=== PATIENT | female | born 1935 | race Caucasian/White ===

== ENCOUNTER 2016-07-26 12:43 | Emergency (ER) | payer OTHER ==
[~2016-07-26 12:43] MED LIST: ATORVASTATIN CA10 MG PO; LEVOTHYROXINE112 MCG PO; LISINOPRIL5 MG PO; METFORMIN HCL500 MG PO; TYLENOL EXTRA500 MG PO; VITAMIN D-31000 UNIT PO
--- NOTE | 2016-07-26 14:32 | DIAGNOSTIC IMAGING REPORT ---
PROCEDURE: XR CHEST 2 VIEW INDICATION: WHEEZING. X-SMOKER. TECHNIQUE: PA and lateral view. COMPARISON: None. FINDINGS: Mild hyperinflation with peribronchial cuffing. Lungs are clear. Cardiovascular structures are normal. Mild dextroscoliosis with severe degenerative changes of the spine. Left shoulder arthroplasty. Cholecystectomy. IMPRESSION: 1. COPD 2. Bronchitis
--- NOTE | 2016-07-26 16:52 | ED ORDER SUMMARY ---
..... Patient: PEGGY MENDEZ OrderSheet [facility] VisitID: [id number] [address] [place] [address] 81y, F Registration Date/Time: 07/26/2016 ORDER SHEET Weight: 83.9 kg (estimated) Allergies: Codeine, IV Contrast, Sulfa Antibiotics GENERAL ORDERS: Chest 2V Urgent (13:07/26/2016 Virgie Calderon) (Ack 13:12 YURIurca ER Tech1) (13:27 RMarsden R.N.) Pharmacist Intern (Continuous) (Respiratory Distress) (13:07/26/2016 Virgie Calderon) (13:10 JSimbeck R.N.) CMP Urgent (13:07/26/2016 Virgie Calderon) (Ack 13:12 YURIurca ER Tech1) (13:20 RMarsden R.N.) CBC w Diff Urgent (13:07/26/2016 Virgie Calderon) (Ack 13:12 YURIurca ER Tech1) (13:20 RMarsden R.N.) Pulse oximeter (13:07/26/2016 Virgie Calderon) (13:10 JSimbeck R.N.) MEDICATION ORDERS: DuoNeb Neb Tx 1 unit dose (NOW) (13:07/26/2016 Virgie Calderon) (13:21 RMarsden R.N.) Albuterol Neb Tx 2 unit doses (now) (15:24 07/26/2016 Virgie Calderon) (Ack 15:30 RMarsden R.N.) (15:51 RMarsden R.N.) Azithromycin PO 500 mg (NOW) (16:50 07/26/2016 Virgie Calderon) (Ack 17:05 JSimbeck R.N.) (17:08 Ronna R.N.) IV FLUIDS: Solu-MEDROL IV 125 mg (NOW) (13:07/26/2016 Virgie Calderon) (Ack 13:21 RMarsden R.N.) (13:27 RMarsden R.N.) IV Saline Lock (13:07/26/2016 Virgie Calderon) (13:21 Katiuska Peter) ORDER SHEET NOTES: [Electronically signed by Magui Peña R.N. (:07/26/2016)] [Electronically signed by Hansel Gregorio Dr. (16:59 07/30/2016)] [Electronically locked/signed by Magui Peña R.N. (:07/26/2016)]
--- NOTE | 2016-07-26 16:52 | ED NURSING NOTES ---
Clinical Report - Nurses [facility] [address] [place] [address] 07/26/2016 12:45 Patient: PEGGY MENDEZ TRIAGE Triage time 12:52. Acuity: LEVEL 3. Chief Complaint: SHORTNESS OF BREATH, DIFFICULTY BREATHING and WHEEZING. 13:06 07/26/16. Alert. No acute distress. SEPSIS SCREEN: Sepsis Screen. Negative (no infection suspected/documented). DARCIE COMA SCORE: [place] Coma Scale: 15- eyes open spontaneously (4); best verbal response- oriented x 4 (5); best motor response- obeys commands (6). --13:06 Magui Peña R.N. 12:55 07/26/16. BP: 131/88. HR: 102. RR: 19. O2 saturation: 95%. Temp: 98.5 F. Pain level now: 0/10. --13:06 Magui Peña R.N. Weight: 83.9 kg estimated. Height/Length: 61 inches Estimated. BMI: 35. --13:05 Magui Peña R.N. Medications Albuterol Sulfate Inhalation. --13:00 Magui Peña R.N. Atorvastatin Calcium Oral. MetFORMIN HCl Oral. --13:01 Magui Peña R.N. Vitamin D Oral. --13:01 Magui Peña R.N. Levothyroxine Sodium Oral. --13:01 Magui Peña R.N. Allergies Codeine. IV Contrast. Sulfa Antibiotics. --13:01 Magui Peña R.N. History Arrived by private vehicle. Historian: patient and family. Accompanied by family. Primary physician (Dr Hunter). Onset. (four days ago). ( Patient states "I've felt like this before, but usually I can sit and breathe through it and it will go away. This time it has been hard to breathe for 4 days." Patient states that she also has been coughing up yellow phlegm.). She has had wheezing. Treatment SLEEP TECHNOLOGIST: (albuterol). PAST MEDICAL HX: Immunizations: up-to-date. SOCIAL HX: Smoker- current status unknown. No alcohol use or drug use. FALL RISK ASSESSMENT: Fall risk assessment completed. No fall risk identified. NUTRITIONAL RISK ASSESSMENT: The nutritional risk assessment revealed no deficiencies. FUNCTIONAL ASSESSMENT: Functional assessment: no impairments noted. LEARNING NEEDS ASSESSMENT: The learning needs assessment revealed no barriers. SKIN INTEGRITY ASSESSMENT: Skin integrity risk assessment completed. No skin integrity risk identified. --13:06 Magui Peña R.N. PROBLEMS: Asthma. Wound Check. Diabetes Mellitus. Tetanus Status. Immunizations. Cellulitis. Contusion. Abrasion(s). Diab. --13:02 Magui Peña R.N. ADDITIONAL SURGERIES: Carpal Tunnel Surgery. Cholecystectomy. Hysterectomy. Oophorectomy. Shoulder Surgery. Umbilical Hernia Repair. --13:02 Magui Peña R.N. Interventions ID band on patient. To treatment room. --13:06 Magui Peña R.N. PHYSICAL ASSESSMENT 13:07 07/26/16. Ambulatory to room. GENERAL / NEURO / PSYCH: Alert. Oriented X 4. Appears in no acute distress. HEENT: Mucous membranes are pink. RESPIRATORY: Moderate respiratory distress. Chest nontender. Bilateral wheezes diffusely. CVS: Capillary refill less than 2 seconds. GI / : Abdomen soft. Bowel sounds within normal limits. SKIN: Skin is warm and dry. Normal skin turgor. --13:07 Magui Peña R.N. NURSING PROGRESS NOTES Patient gowned. Two patient identifiers checked. Call light placed in reach. Side rails up x 1. Bed placed in lowest position. Brakes of bed on. --13:07 Magui Peña R.N. Patient ID band checked for patient name and birthdate: family confirmed. Blood samples drawn from the left antecubital space by nurse per protocol ; labeled in presence of the patient: rainbow set. Line flushed with 5 mL normal saline post blood draw. --13:20 Magui Peña R.N. 13:15 07/26/2016 Site #1 started via IV in the left antecubital space with an 20g angiocath; one attempt. Blood drawn: rainbow set. Labeled in the presence of the patient and sent to the lab. Saline lock flushed with 5 mL saline. --13:21 Magui Peña R.N. 13:21 07/26/2016 Duoneb (Ipratropium-Albuterol) Neb TX 1 unit dose given. Given by the respiratory therapist. Allergies verified and confirmed 5 rights. --13:21 Magui Peña R.N. 13:27 07/26/2016 SOLU-MEDROL (MethylPREDNISolone Sodium Succ) IVP 125 mg given over 2 minute(s) via site #1. Allergies verified and confirmed 5 rights. IV patency established. IV site checked: no pain, redness, or swelling. IV flushed thoroughly pre- and post-medication administration. IVP given by RN. --13:27 Magui Peña R.N. ( Pt states that the benefit from the HHN has worn off.). --13:48 Isiah Jackson R.N. 13:46 07/26/16. BP: 94/64 taken on the right arm, while lying. HR: 94. RR: 18. O2 saturation: 97%. Pain level now: 0/10. --13:48 Isiah Jackson R.N. 14:40 07/26/16. BP: 118/53. HR: 90. RR: 20. O2 saturation: 96%. Pain level now: 0/10. --14:41 Magui Peña R.N. Reassessment after medication administered. She is calm and has had no adverse reaction. ( Patient states "I think that medication you gave me [solu-mederol] really helped"). RESPIRATORY: No respiratory distress. Patient informed about reason for wait and about plan of care. --14:44 Magui Peña R.N. 15:14 07/26/16. BP: 108/45. HR: 85. RR: 21. O2 saturation: 98%. Pain level now: 0/10. --15:15 Magui Peña R.N. The patient is sleeping. --15:15 Magui Peña R.N. ( Patient's O2 sat was 84% on room air while she was sleeping. She was placed on 2L O2 via nasal cannula). --15:24 Magui Peña R.N. 14:00 07/26/2016 Duoneb Neb TX Response: no adverse reaction symptoms have improved. --16:18 Isiah Jackson R.N. 15:41 07/26/2016 Albuterol Neb TX Nebulizer 2 unit dose given. Given by the respiratory therapist. Allergies verified and confirmed 5 rights. --15:51 Magui Peña R.N. 15:53 07/26/16. BP: 96/45. HR: 87. RR: 19. O2 saturation: 98%. Temp: deferred. Pain level now: 0/10. --15:54 Magui Peña R.N. ( O2 sat 95% after nasal cannula placement). --15:54 Magui Peña R.N. 16:40 07/26/2016 Albuterol Neb TX Response: no adverse reaction symptoms have improved (Pt reports some relief now, but still has a heavy feeling in the sternal area.). --16:40 Isiah Jackson R.N. 17:08 07/26/2016 Azithromycin PO Tablets 500 mg given. Allergies verified and confirmed 5 rights. --17:08 Isiah Jackson R.N. DISPOSITION / DISCHARGE 17:14 07/26/16. BP: 96/47. HR: 110. RR: 21. O2 saturation: 93%. Temp: 98.8 F. Pain level now: 0/10. --17:16 Magui Peña R.N. No learning barriers present. Discharge instructions provided and reviewed with the patient. Reviewed warnings. Reviewed medication(s). Treatments reviewed. Activity restrictions reviewed. Patient and family verbalized understanding. Written instructions provided in Croatian. The patient was discharged by the physician. She was discharged home and accompanied by family. She left the Emergency Department ambulatory and via private vehicle. Family member driving. --17:26 Magui Peña R.N. Locked/Released at 07/26/2016 19:26 by Magui Peña R.N.
--- NOTE | 2016-07-26 16:52 | ED CLINICAL REPORT ---
Clinical Report - Physicians/Mid Levels [facility] [address] [place] [address] 07/26/2016 12:45 Patient: PEGGY MENDEZ Time Seen: 1259. Arrived- By private vehicle. Historian- patient. HISTORY OF PRESENT ILLNESS Chief Complaint: DYSPNEA and WHEEZING. This started past 3 - 4 days and is still present (unchanged). It was gradual in onset and has been constant but is not gone now. The dyspnea is described as moderate. The patient has had a cough. (wheezing. hx of smoking. quit in the s but was a smoker for 30 - 40 years.). No chest pain. Asthma triggers: unknown. Takes asthma medications (inhaled albuterol), recently prescribed by PCP. works for a few hours but then comes back. Similar symptoms previously: Recent medical care: The patient was seen recently in a clinic. REVIEW OF SYSTEMS No fever, headache, palpitations or skin rash. All systems otherwise negative, except as recorded above. PAST HISTORY See nurses notes. Medications: Levothyroxine Sodium Oral. Vitamin D Oral. Atorvastatin Calcium Oral. MetFORMIN HCl Oral. Albuterol Sulfate Inhalation. Allergies: Codeine. IV Contrast. Sulfa Antibiotics. SOCIAL HISTORY Former smoker. No alcohol use or drug use. No recent travel. Is a local resident. ADDITIONAL NOTES The nursing notes have been reviewed. PHYSICAL EXAM Vital Signs: 07/26/2016 12:55 BP: 131/88. HR: 102. RR: 19. O2 saturation: 95%. Temp: 98.5 F. Pain level now: 0/10. Blood pressure normal. Oxygen saturation normal. Appearance: Alert. No acute distress. Eyes: Pupils equal, round and reactive to light. Eyes normal inspection. ENT: Ears normal. Nose normal. Pharynx normal. Uvula midline. Neck: Normal inspection. Neck supple. CVS: Normal heart rate and rhythm. Heart sounds normal. Pulses normal. Respiratory: Mild respiratory distress with accessory muscle use. Expiratory moderate bilateral wheezes diffusely. No stridor, rales or rhonchi. Abdomen: Soft and nontender. No organomegaly. Skin: Skin warm and dry. Normal skin color. No rash. Normal skin turgor. Extremities: Extremities exhibit normal ROM. No lower extremity edema. Neuro: Oriented X 3. No motor deficit. No sensory deficit. LABS, X-RAYS, AND EKG Chest X-ray: (PROCEDURE: XR CHEST 2 VIEW INDICATION: WHEEZING. X-SMOKER. TECHNIQUE: PA and lateral view. COMPARISON: None. FINDINGS: Mild hyperinflation with peribronchial cuffing. Lungs are clear. Cardiovascular structures are normal. Mild dextroscoliosis with severe degenerative changes of the spine. Left shoulder arthroplasty. Cholecystectomy. IMPRESSION: 1. COPD 2. Bronchitis). Views: PA and lateral. The X-rays were independently viewed by me and interpreted by the radiologist. The X-rays were discussed with the radiologist (via pacs). Laboratory Tests: CBC w Diff: (TATA: 07/26/2016 13:16) ( [facility]32) Final results Test Result Flag Units (Reference) WHITE BLOOD COUNT 10.3 K/uL (4.5-11.5) RED BLOOD COUNT 4.33 M/uL (4.00-5.20) HEMOGLOBIN 12.5 gm/dL (12.0-16.0) HEMATOCRIT 38.1 % (36.0-46.0) MEAN CELL VOLUME 88 fL (80-100) MEAN CORPUSCULAR HGB 29 pg (26-34) MEAN CORPUSCULAR HGB CONC 33 g/dL (31-37) RED CELL DISTRIBUTION WIDTH 12.8 % (11.6-14.8) PLATELET COUNT 510 H K/uL (150-400) NEUTROPHIL % 64.4 % (50-75) LYMPH % 24.8 L % (25-40) MONO % 4.0 % (3-14) EOSINOPHIL % 6.4 H % (0-4) BASOPHIL % 0.4 % (0-2) CMP: (TATA: 07/26/2016 13:16) ( [facility]26[facility] 14:07) Final results Test Result Flag Units (Reference) GLUCOSE 147 H mg/dL (70-110) BUN 21 H mg/dL (7-18) CREATININE 0.8 mg/dL (0.6-1.3) Estimated GFR >60 mL/min Estimated GFR- >60 mL/min Note: Persistent reduction over 3 months in eGFR<60 mL/min/1.73 m2 defines CKD. Patients with eGFR values>=60 mL/min/1.73 m2 may also have CKD if evidence ofpersistent proteinuria. Additional information may be foundat www.kidney.org. SODIUM 144 mmol/L (136-145) POTASSIUM 3.9 mmol/L (3.5-5.1) CHLORIDE 104 mmol/L (98-107) CARBON DIOXIDE 27 mmol/L (21-32) CALCIUM 9.1 mg/dL (8.5-10.1) TOTAL PROTEIN 7.4 g/dL (6.4-8.2) ALBUMIN 3.9 g/dL (3.3-5.0) BILIRUBIN, TOTAL 0.5 mg/dL (0.0-1.0) ALKALINE PHOSPHATASE 63 U/L (46-116) AST (SGOT) 15 U/L (15-37) ALT (SGPT) 27 U/L (12-78) . PROGRESS AND PROCEDURES Course of Care: The patient is a pleasant 81-year-old female presenting for revised and wheezing. At this time differential diagnosis includes pneumonia versus COPD exacerbation. Patient is agreeable to the treatment plan. We'll obtain laboratory studies for evaluation of any metabolic derangements occurring from the patient's difficulty breathing. Breathing treatment has been ordered. Patient is agreeable to the treatment and plan. If symptoms do not improve his breathing treatments here in the emergency department we'll consider other causes for the patient to have difficulty breathing and wheezing. Patient's chest x-ray is noted for the findings above. Laboratory studies are also noted to be noted to have only slight improvement with her breathing here in the emergency department. Further breathing treatments have been ordered. We'll monitor closely. Patient had required several breathing treatments here in the emergency department however had significantly improved with the treatments here in the emergency department. Patient continues to be nontoxic. Breathing has significantly improved. Breasts are nonlabored and patient only with intermittent wheezing on examination and is otherwise clear. Because of the patient's improved symptomatology and lack of respiratory distress, fill the patient is a stable outpatient candidate. Patient states that she feels comfortable with home care at this time and states that she'll return immediately for any worsening and states that she lives nearby. Because of this, patient appears to be reliable and a good outpatient candidate. Discussed with the patient her workup here in the emergency department clinic diagnosis, home care, follow-up, and return precautions. All questions have been answered. He patient expressed understanding of these instructions and was agreeable to them. Disposition: Discharged. Condition: good. CLINICAL IMPRESSION 07/26/2016 15:53 BP: 96/45. HR: 87. RR: 19. O2 saturation: 98%. Pain level now: 0/10. 07/26/2016 15:14 BP: 108/45. HR: 85. RR: 21. O2 saturation: 98%. Pain level now: 0/10. Blood pressure normal. Oxygen saturation normal. Acute bronchospasm Acute bacterial bronchitis. INSTRUCTIONS Warnings: GENERAL WARNINGS: Return or contact your physician immediately if your condition worsens or changes unexpectedly, if not improving as expected, or if other problems arise. Specifically return if pain, vomiting, bleeding, breathing difficulty or fever. Your Current Medications: CONTINUE TAKING THE FOLLOWING MEDICATIONS: Albuterol Sulfate Inhalation. Atorvastatin Calcium Oral. Levothyroxine Sodium Oral. MetFORMIN HCl Oral. Vitamin D Oral. Prescription Medications: Zithromax Z-Rell: Take according to package instructions. No refills. Substitution is permissible. Prednisone 50 mg: take 1 orally every day. Dispense five (5). No refills. Follow-up: Return to the emergency department as needed. Follow up with your doctor in three days. Reason for referral: recheck today's concerns. Summary of care provided to patient and family via paper. Screening today revealed the patient's blood pressure to be in the normal range. The patient should follow up with a primary care provider for blood pressure management. Understanding of the discharge instructions verbalized by patient. (Electronically signed by Hansel Gregorio Dr. 07/30/2016 16:59)
--- NOTE | 2016-07-26 16:52 | ED ORDER SUMMARY ---
..... Patient: PEGGY MENDEZ OrderSheet [facility] VisitID: [id number] [address] [place] [address] 81y, F Registration Date/Time: 07/26/2016 ORDER SHEET Weight: 83.9 kg (estimated) Allergies: Codeine, IV Contrast, Sulfa Antibiotics GENERAL ORDERS: Chest 2V Urgent (13:07/26/2016 Virgie Calderon) (Ack 13:12 YURIurca ER Tech1) (13:27 RMarsden R.N.) Surgical Pathologist (Continuous) (Respiratory Distress) (13:07/26/2016 Virgie Calderon) (13:10 JSimbeck R.N.) CMP Urgent (13:07/26/2016 Virgie Calderon) (Ack 13:12 YURIurca ER Tech1) (13:20 RMarsden R.N.) CBC w Diff Urgent (13:07/26/2016 Virgie Calderon) (Ack 13:12 YURIurca ER Tech1) (13:20 RMarsden R.N.) Pulse oximeter (13:07/26/2016 Virgie Calderon) (13:10 JSimbeck R.N.) MEDICATION ORDERS: DuoNeb Neb Tx 1 unit dose (NOW) (13:07/26/2016 Virgie Calderon) (13:21 RMarsden R.N.) Albuterol Neb Tx 2 unit doses (now) (15:24 07/26/2016 Virgie Calderon) (Ack 15:30 RMarsden R.N.) (15:51 RMarsden R.N.) Azithromycin PO 500 mg (NOW) (16:50 07/26/2016 Virgie Calderon) (Ack 17:05 JSimbeck R.N.) (17:08 Ronna R.N.) IV FLUIDS: Solu-MEDROL IV 125 mg (NOW) (13:07/26/2016 Virgie Calderon) (Ack 13:21 RMarsden R.N.) (13:27 RMarsden R.N.) IV Saline Lock (13:07/26/2016 Virgie Calderon) (13:21 Katiuska Peter) ORDER SHEET NOTES: [Electronically signed by Magui Peña R.N. (:07/26/2016)] [Electronically signed by Hansel Gregorio Dr. (16:59 07/30/2016)] [Electronically locked/signed by Magui Peña R.N. (:07/26/2016)]
--- NOTE | 2016-07-30 17:00 | ED MAR SUMMARY ---
..... Medication Administration Record [facility] [address] [place] [address] Patient: PEGGY MENDEZ Visit ID: [id number] 81y, F Weight: 83.9 kg Height/Length: 61 in BMI: 35 ALLERGIES: Codeine, IV Contrast, Sulfa Antibiotics Given 13:21 07/26/2016 Magui Peña R.N. Medication Administered: DUONEB [NEB TX] (IPRATROPIUM-ALBUTEROL), Dose: 1 unit dose Neb TX. Medication Ordered: DuoNeb Neb Tx 1 unit dose (NOW). Given 13:27 07/26/2016 Magui Peña R.N. Medication Administered: SOLU-MEDROL [IVP] (METHYLPREDNISOLONE SODIUM SUCC), Dose: 125 mg IVP over 2 minute(s), Site: #1 left AC. Medication Ordered: Solu-MEDROL IV 125 mg (NOW). Given 15:41 07/26/2016 Magui Peña R.N. Medication Administered: ALBUTEROL [NEB TX], Dose: 2 unit dose Nebulizer Neb TX. Medication Ordered: Albuterol Neb Tx 2 unit doses (now). Given 17:08 07/26/2016 Isiah Jackson R.N. Medication Administered: AZITHROMYCIN [PO], Dose: 500 mg Tablets PO. Medication Ordered: Azithromycin PO 500 mg (NOW).
--- NOTE | 2016-07-30 17:00 | ED MAR SUMMARY ---
..... Medication Administration Record [facility] [address] [place] [address] Patient: PEGGY MENDEZ Visit ID: [id number] 81y, F Weight: 83.9 kg Height/Length: 61 in BMI: 35 ALLERGIES: Codeine, IV Contrast, Sulfa Antibiotics Given 13:21 07/26/2016 Magui Peña R.N. Medication Administered: DUONEB [NEB TX] (IPRATROPIUM-ALBUTEROL), Dose: 1 unit dose Neb TX. Medication Ordered: DuoNeb Neb Tx 1 unit dose (NOW). Given 13:27 07/26/2016 Magui Peña R.N. Medication Administered: SOLU-MEDROL [IVP] (METHYLPREDNISOLONE SODIUM SUCC), Dose: 125 mg IVP over 2 minute(s), Site: #1 left AC. Medication Ordered: Solu-MEDROL IV 125 mg (NOW). Given 15:41 07/26/2016 Magui Peña R.N. Medication Administered: ALBUTEROL [NEB TX], Dose: 2 unit dose Nebulizer Neb TX. Medication Ordered: Albuterol Neb Tx 2 unit doses (now). Given 17:08 07/26/2016 Isiah Jackson R.N. Medication Administered: AZITHROMYCIN [PO], Dose: 500 mg Tablets PO. Medication Ordered: Azithromycin PO 500 mg (NOW).
--- NOTE | 2016-07-30 17:00 | ED DISCHARGE INSTRUCTIONS ---
Patient: PEGGY MENDEZ General Instructions [facility] VisitID: [id number] [address] [place] [address] 81y, F Registration Date/Time: 07/26/2016 07/26/2016 15:53 BP: 96/45. HR: 87. RR: 19. O2 saturation: 98%. Pain level now: 0/10. 07/26/2016 15:14 BP: 108/45. HR: 85. RR: 21. O2 saturation: 98%. Pain level now: 0/10. Blood pressure normal. Oxygen saturation normal. Acute bronchospasm Acute bacterial bronchitis. INSTRUCTIONS Warnings: GENERAL WARNINGS: Return or contact your physician immediately if your condition worsens or changes unexpectedly, if not improving as expected, or if other problems arise. Specifically return if pain, vomiting, bleeding, breathing difficulty or fever. Your Current Medications: CONTINUE TAKING THE FOLLOWING MEDICATIONS: Albuterol Sulfate Inhalation. Atorvastatin Calcium Oral. Levothyroxine Sodium Oral. MetFORMIN HCl Oral. Vitamin D Oral. Prescription Medications: Zithromax Z-Rell: Take according to package instructions. No refills. Substitution is permissible. Prednisone 50 mg: take 1 orally every day. Dispense five (5). No refills. Follow-up: Return to the emergency department as needed. Follow up with your doctor in three days. Reason for referral: recheck today's concerns. Summary of care provided to patient and family via paper. Screening today revealed the patient's blood pressure to be in the normal range. The patient should follow up with a primary care provider for blood pressure management. Understanding of the discharge instructions verbalized by patient. ADDITIONAL INFORMATION Bronchospasm (Adult) Bronchospasm occurs when the airways (bronchial tubes) go into spasm and contract. This makes it hard to breathe and causes wheezing (a high-pitched whistling sound). Bronchospasm can also cause frequent coughing without the wheezing sound. Bronchospasm is due to irritation, inflammation or allergic reaction of the airways. People with asthma get bronchospasm. However, not everyone with bronchospasm has asthma. Being exposed to harmful fumes, a recent case of bronchitis, or a flare-up of chronic emphysema (COPD) may cause the airways to spasm. An episode of bronchospasm may last 7-14 days. Medicine may be prescribed to relax the airways and prevent wheezing. Antibiotics will be prescribed only if your doctor thinks there is a bacterial infection. Antibiotics do not help a viral infection. Home Care: Drink lots of water or other fluids (at least 10 glasses a day) during an attack. This will loosen lung secretions and make it easier to breathe. If you have heart or kidney disease, check with your doctor before you drink extra amounts of fluids. Take prescribed medicine exactly at the times advised. If you have a hand-held inhaler or aerosol breathing medicine, do not use it more than once every four hours, unless told to do so. If prescribed an antibiotic or prednisone, take all of the medicine even if you are feeling better after a few days. Do not smoke. Avoid being exposed to the smoke of others. If you were given an inhaler, use it exactly as directed. If you need to use it more often than prescribed, your condition may be getting worse. Contact your doctor or this facility. Follow Up With Your Doctor, Or As Directed. [ NOTE: If you are age 65 or older, or if you have chronic asthma or COPD, we recommend a PNEUMOCOCCAL VACCINATION every five years and a yearly INFLUENZA VACCINATION (FLU-SHOT) every . Ask your doctor about this.] Get Prompt Medical Attention If Any Of The Following Occur: Increased wheezing or shortness of breath Need to use your inhalers more often than usual without relief Fever of 100.4F (38C) or higher, or as directed by your healthcare provider Coughing up lots of dark-colored or bloody sputum (mucus) Chest pain with each breath You do not start to improve within 24 hours Bronchitis (Adult: Abx Tx) BRONCHITIS is an infection of the air passages (bronchial tubes). It often occurs during the common cold. Symptoms include cough with mucus (phlegm) and low-grade fever. Bronchitis usually lasts 7-14 days. Mild cases can be treated with simple home remedies. More severe infection is treated with an antibiotic. Home Care: If symptoms are severe, rest at home for the first 2-3 days. When you resume activity, don't let yourself get too tired. Do not smoke. Avoid being exposed to the smoke of others. You may use acetaminophen (Tylenol) or ibuprofen (Motrin, Advil) to control fever or pain, unless another medicine was prescribed for this. [NOTE: If you have chronic liver or kidney disease or ever had a stomach ulcer or GI bleeding, talk with your doctor before using these medicines.] Your appetite may be poor, so a light diet is fine. Avoid dehydration by drinking 6-8 glasses of fluids per day (water, soft, drinks, juices, tea, soup, etc.). Extra fluids will help loosen secretions in the lungs. Rxbs-ass-mdiyqgu cough medicines that containdextromethorphan(such as Robitussin DM) and decongestants (Actifed or Sudafed) may help relieve cough and congestion. [NOTE: Do not use decongestants if you have high blood pressure.] Finish all antibiotic medicine, even if you are feeling better after only a few days. Follow Up with your doctor or as directed if you dont start to feel better after three days. [NOTE: If you are age 65 or older, or if you have chronic asthma or COPD, we recommend a PNEUMOCOCCAL VACCINATION every five years and a yearly INFLUENZAVACCINATION (FLU-SHOT) every . Ask your doctor about this. If you had an X-ray, a radiologist will review it. You will be notified of any new findings that may affect your care.] Get Prompt Medical Attention if any of the following occur: Fever over 100.4F (38.0C) for more than three days Trouble breathing, wheezing or pain with breathing Coughing up blood or increased amounts of colored sputum Weakness, drowsiness, headache, facial pain, ear pain or a stiff neck Prednisone Oral tablet What is this medicine? PREDNISONE (PRED ni sone) is a corticosteroid. It is commonly used to treat inflammation of the skin, joints, lungs, and other organs. Common conditions treated include asthma, allergies, and arthritis. It is also used for other conditions, such as blood disorders and diseases of the adrenal glands. How should I use this medicine? Take this medicine by mouth with a glass of water. Follow the directions on the prescription label. Take this medicine with food. If you are taking this medicine once a day, take it in the morning. Do not take more medicine than you are told to take. Do not suddenly stop taking your medicine because you may develop a severe reaction. Your doctor will tell you how much medicine to take. If your doctor wants you to stop the medicine, the dose may be slowly lowered over time to avoid any side effects. Talk to your manager mission regarding the use of this medicine in children. Special care may be needed. What side effects may I notice from receiving this medicine? Side effects that you should report to your doctor or health care coordinator as soon as possible: allergic reactions like skin rash, itching or hives, swelling of the face, lips, or tongue changes in emotions or moods changes in vision depressed mood eye pain fever or chills, cough, sore throat, pain or difficulty passing urine increased thirst swelling of ankles, feet Side effects that usually do not require medical attention (report to your doctor or health care coordinator if they continue or are bothersome): confusion, excitement, restlessness headache nausea, vomiting skin problems, acne, thin and shiny skin trouble sleeping weight gain What may interact with this medicine? Do not take this medicine with any of the following medications: metyrapone mifepristone This medicine may also interact with the following medications: aminoglutethimide amphotericin B aspirin and aspirin-like medicines barbiturates certain medicines for diabetes, like glipizide or glyburide cholestyramine cholinesterase inhibitors cyclosporine digoxin diuretics ephedrine female hormones, like estrogens and control pills isoniazid ketoconazole NSAIDS, medicines for pain and inflammation, like ibuprofen or naproxen phenytoin rifampin toxoids vaccines warfarin What if I miss a dose? If you miss a dose, take it as soon as you can. If it is almost time for your next dose, talk to your doctor or health care coordinator. You may need to miss a dose or take an extra dose. Do not take double or extra doses without advice. Where should I keep my medicine? Keep out of the reach of children. Store at room temperature between 15 and 30 degrees C (59 and 86 degrees F). Protect from light. Keep container tightly closed. Throw away any unused medicine after the expiration date. What should I tell my health care provider before I take this medicine? They need to know if you have any of these conditions: Alesia's syndrome diabetes glaucoma heart disease high blood pressure infection (especially a virus infection such as chickenpox, cold sores, or herpes) kidney disease liver disease mental illness myasthenia gravis osteoporosis seizures stomach or intestine problems thyroid disease an unusual or allergic reaction to lactose, prednisone, other medicines, foods, dyes, or preservatives or trying to get breast-feeding What should I watch for while using this medicine? Visit your doctor or health care coordinator for regular checks on your progress. If you are taking this medicine over a prolonged period, carry an identification card with your name and address, the type and dose of your medicine, and your doctor's name and address. This medicine may increase your risk of getting an infection. Tell your doctor or health care coordinator if you are around anyone with measles or chickenpox, or if you develop sores or blisters that do not heal properly. If you are going to have surgery, tell your doctor or health care coordinator that you have taken this medicine within the last twelve months. Ask your doctor or health care coordinator about your diet. You may need to lower the amount of salt you eat. This medicine may affect blood sugar levels. If you have diabetes, check with your doctor or health care coordinator before you change your diet or the dose of your diabetic medicine. You have been given the following additional information: Bronchospasm (Adult) Bronchitis, Antiobiotic Treatment (Adult) Prednisone Oral tablet (Electronically signed by Hansel Gregorio Dr. 07/30/2016 16:59)
--- NOTE | 2016-07-30 17:00 | ED DISCHARGE INSTRUCTIONS ---
Patient: PEGGY MENDEZ General Instructions [facility] VisitID: [id number] [address] [place] [address] 81y, F Registration Date/Time: 07/26/2016 07/26/2016 15:53 BP: 96/45. HR: 87. RR: 19. O2 saturation: 98%. Pain level now: 0/10. 07/26/2016 15:14 BP: 108/45. HR: 85. RR: 21. O2 saturation: 98%. Pain level now: 0/10. Blood pressure normal. Oxygen saturation normal. Acute bronchospasm Acute bacterial bronchitis. INSTRUCTIONS Warnings: GENERAL WARNINGS: Return or contact your physician immediately if your condition worsens or changes unexpectedly, if not improving as expected, or if other problems arise. Specifically return if pain, vomiting, bleeding, breathing difficulty or fever. Your Current Medications: CONTINUE TAKING THE FOLLOWING MEDICATIONS: Albuterol Sulfate Inhalation. Atorvastatin Calcium Oral. Levothyroxine Sodium Oral. MetFORMIN HCl Oral. Vitamin D Oral. Prescription Medications: Zithromax Z-Rell: Take according to package instructions. No refills. Substitution is permissible. Prednisone 50 mg: take 1 orally every day. Dispense five (5). No refills. Follow-up: Return to the emergency department as needed. Follow up with your doctor in three days. Reason for referral: recheck today's concerns. Summary of care provided to patient and family via paper. Screening today revealed the patient's blood pressure to be in the normal range. The patient should follow up with a primary care provider for blood pressure management. Understanding of the discharge instructions verbalized by patient. ADDITIONAL INFORMATION Bronchospasm (Adult) Bronchospasm occurs when the airways (bronchial tubes) go into spasm and contract. This makes it hard to breathe and causes wheezing (a high-pitched whistling sound). Bronchospasm can also cause frequent coughing without the wheezing sound. Bronchospasm is due to irritation, inflammation or allergic reaction of the airways. People with asthma get bronchospasm. However, not everyone with bronchospasm has asthma. Being exposed to harmful fumes, a recent case of bronchitis, or a flare-up of chronic emphysema (COPD) may cause the airways to spasm. An episode of bronchospasm may last 7-14 days. Medicine may be prescribed to relax the airways and prevent wheezing. Antibiotics will be prescribed only if your doctor thinks there is a bacterial infection. Antibiotics do not help a viral infection. Home Care: Drink lots of water or other fluids (at least 10 glasses a day) during an attack. This will loosen lung secretions and make it easier to breathe. If you have heart or kidney disease, check with your doctor before you drink extra amounts of fluids. Take prescribed medicine exactly at the times advised. If you have a hand-held inhaler or aerosol breathing medicine, do not use it more than once every four hours, unless told to do so. If prescribed an antibiotic or prednisone, take all of the medicine even if you are feeling better after a few days. Do not smoke. Avoid being exposed to the smoke of others. If you were given an inhaler, use it exactly as directed. If you need to use it more often than prescribed, your condition may be getting worse. Contact your doctor or this facility. Follow Up With Your Doctor, Or As Directed. [ NOTE: If you are age 65 or older, or if you have chronic asthma or COPD, we recommend a PNEUMOCOCCAL VACCINATION every five years and a yearly INFLUENZA VACCINATION (FLU-SHOT) every . Ask your doctor about this.] Get Prompt Medical Attention If Any Of The Following Occur: Increased wheezing or shortness of breath Need to use your inhalers more often than usual without relief Fever of 100.4F (38C) or higher, or as directed by your healthcare provider Coughing up lots of dark-colored or bloody sputum (mucus) Chest pain with each breath You do not start to improve within 24 hours Bronchitis (Adult: Abx Tx) BRONCHITIS is an infection of the air passages (bronchial tubes). It often occurs during the common cold. Symptoms include cough with mucus (phlegm) and low-grade fever. Bronchitis usually lasts 7-14 days. Mild cases can be treated with simple home remedies. More severe infection is treated with an antibiotic. Home Care: If symptoms are severe, rest at home for the first 2-3 days. When you resume activity, don't let yourself get too tired. Do not smoke. Avoid being exposed to the smoke of others. You may use acetaminophen (Tylenol) or ibuprofen (Motrin, Advil) to control fever or pain, unless another medicine was prescribed for this. [NOTE: If you have chronic liver or kidney disease or ever had a stomach ulcer or GI bleeding, talk with your doctor before using these medicines.] Your appetite may be poor, so a light diet is fine. Avoid dehydration by drinking 6-8 glasses of fluids per day (water, soft, drinks, juices, tea, soup, etc.). Extra fluids will help loosen secretions in the lungs. Jinm-ypn-hxynjtz cough medicines that containdextromethorphan(such as Robitussin DM) and decongestants (Actifed or Sudafed) may help relieve cough and congestion. [NOTE: Do not use decongestants if you have high blood pressure.] Finish all antibiotic medicine, even if you are feeling better after only a few days. Follow Up with your doctor or as directed if you dont start to feel better after three days. [NOTE: If you are age 65 or older, or if you have chronic asthma or COPD, we recommend a PNEUMOCOCCAL VACCINATION every five years and a yearly INFLUENZAVACCINATION (FLU-SHOT) every . Ask your doctor about this. If you had an X-ray, a radiologist will review it. You will be notified of any new findings that may affect your care.] Get Prompt Medical Attention if any of the following occur: Fever over 100.4F (38.0C) for more than three days Trouble breathing, wheezing or pain with breathing Coughing up blood or increased amounts of colored sputum Weakness, drowsiness, headache, facial pain, ear pain or a stiff neck Prednisone Oral tablet What is this medicine? PREDNISONE (PRED ni sone) is a corticosteroid. It is commonly used to treat inflammation of the skin, joints, lungs, and other organs. Common conditions treated include asthma, allergies, and arthritis. It is also used for other conditions, such as blood disorders and diseases of the adrenal glands. How should I use this medicine? Take this medicine by mouth with a glass of water. Follow the directions on the prescription label. Take this medicine with food. If you are taking this medicine once a day, take it in the morning. Do not take more medicine than you are told to take. Do not suddenly stop taking your medicine because you may develop a severe reaction. Your doctor will tell you how much medicine to take. If your doctor wants you to stop the medicine, the dose may be slowly lowered over time to avoid any side effects. Talk to your senior painter regarding the use of this medicine in children. Special care may be needed. What side effects may I notice from receiving this medicine? Side effects that you should report to your doctor or health primary health care nurse as soon as possible: allergic reactions like skin rash, itching or hives, swelling of the face, lips, or tongue changes in emotions or moods changes in vision depressed mood eye pain fever or chills, cough, sore throat, pain or difficulty passing urine increased thirst swelling of ankles, feet Side effects that usually do not require medical attention (report to your doctor or health primary health care nurse if they continue or are bothersome): confusion, excitement, restlessness headache nausea, vomiting skin problems, acne, thin and shiny skin trouble sleeping weight gain What may interact with this medicine? Do not take this medicine with any of the following medications: metyrapone mifepristone This medicine may also interact with the following medications: aminoglutethimide amphotericin B aspirin and aspirin-like medicines barbiturates certain medicines for diabetes, like glipizide or glyburide cholestyramine cholinesterase inhibitors cyclosporine digoxin diuretics ephedrine female hormones, like estrogens and control pills isoniazid ketoconazole NSAIDS, medicines for pain and inflammation, like ibuprofen or naproxen phenytoin rifampin toxoids vaccines warfarin What if I miss a dose? If you miss a dose, take it as soon as you can. If it is almost time for your next dose, talk to your doctor or health primary health care nurse. You may need to miss a dose or take an extra dose. Do not take double or extra doses without advice. Where should I keep my medicine? Keep out of the reach of children. Store at room temperature between 15 and 30 degrees C (59 and 86 degrees F). Protect from light. Keep container tightly closed. Throw away any unused medicine after the expiration date. What should I tell my health care provider before I take this medicine? They need to know if you have any of these conditions: Alesia's syndrome diabetes glaucoma heart disease high blood pressure infection (especially a virus infection such as chickenpox, cold sores, or herpes) kidney disease liver disease mental illness myasthenia gravis osteoporosis seizures stomach or intestine problems thyroid disease an unusual or allergic reaction to lactose, prednisone, other medicines, foods, dyes, or preservatives or trying to get breast-feeding What should I watch for while using this medicine? Visit your doctor or health primary health care nurse for regular checks on your progress. If you are taking this medicine over a prolonged period, carry an identification card with your name and address, the type and dose of your medicine, and your doctor's name and address. This medicine may increase your risk of getting an infection. Tell your doctor or health primary health care nurse if you are around anyone with measles or chickenpox, or if you develop sores or blisters that do not heal properly. If you are going to have surgery, tell your doctor or health primary health care nurse that you have taken this medicine within the last twelve months. Ask your doctor or health primary health care nurse about your diet. You may need to lower the amount of salt you eat. This medicine may affect blood sugar levels. If you have diabetes, check with your doctor or health primary health care nurse before you change your diet or the dose of your diabetic medicine. You have been given the following additional information: Bronchospasm (Adult) Bronchitis, Antiobiotic Treatment (Adult) Prednisone Oral tablet (Electronically signed by Hansel Gregorio Dr. 07/30/2016 16:59)
--- NOTE | 2016-07-30 17:00 | ED MED RECONCILIATION SUMMARY ---
Patient: PEGGY MENEDZ Medication Reconciliation Report [facility] VisitID: [id number] [address] [place] [address] 81y, F Registration Date/Time: 07/26/2016 Weight: 83.9 kg Height/Length: 61 in. BMI: 35.0 ALLERGIES: Codeine, IV Contrast, Sulfa Antibiotics The patient's Home Medications are listed below: CONTINUE TAKING THE FOLLOWING MEDICATIONS: Albuterol Sulfate Inhalation Atorvastatin Calcium Oral Levothyroxine Sodium Oral MetFORMIN HCl Oral Vitamin D Oral The source(s) of the original Home Medication information: Not obtained. The following Medications were given to the patient in the Emergency Department: Duoneb [Neb Tx] Neb TX 1 unit dose, administered: 07/26/2016 1:21:00 PM SOLU-MEDROL [IVP] IVP 125 mg, administered: 07/26/2016 1:27:00 PM Albuterol [Neb Tx] Neb TX 2 unit dose, administered: 07/26/2016 3:41:00 PM Azithromycin [PO] PO 500 mg, administered: 07/26/2016 5:08:00 PM The following Medications were prescribed to the patient: Zithromax Z-Rell: Take according to package instructions. No refills. Substitution is permissible. -- Hansel Gregorio Dr. Prednisone 50 mg: take 1 orally every day. Dispense five (5). No refills. -- Hansel Gregorio Dr.
--- NOTE | 2016-07-30 17:00 | ED MED RECONCILIATION SUMMARY ---
Patient: PEGGY MENDEZ Medication Reconciliation Report [facility] VisitID: [id number] [address] [place] [address] 81y, F Registration Date/Time: 07/26/2016 Weight: 83.9 kg Height/Length: 61 in. BMI: 35.0 ALLERGIES: Codeine, IV Contrast, Sulfa Antibiotics The patient's Home Medications are listed below: CONTINUE TAKING THE FOLLOWING MEDICATIONS: Albuterol Sulfate Inhalation Atorvastatin Calcium Oral Levothyroxine Sodium Oral MetFORMIN HCl Oral Vitamin D Oral The source(s) of the original Home Medication information: Not obtained. The following Medications were given to the patient in the Emergency Department: Duoneb [Neb Tx] Neb TX 1 unit dose, administered: 07/26/2016 1:21:00 PM SOLU-MEDROL [IVP] IVP 125 mg, administered: 07/26/2016 1:27:00 PM Albuterol [Neb Tx] Neb TX 2 unit dose, administered: 07/26/2016 3:41:00 PM Azithromycin [PO] PO 500 mg, administered: 07/26/2016 5:08:00 PM The following Medications were prescribed to the patient: Zithromax Z-Rell: Take according to package instructions. No refills. Substitution is permissible. -- Hansel Gregorio Dr. Prednisone 50 mg: take 1 orally every day. Dispense five (5). No refills. -- Hansel Gregorio Dr.
== END 2016-07-26 17:26 | disposition home or self-care (01) ==
LOC: ED SRH 12:43
DX: J20.8 Acute bronchitis due to other specified organisms (principal); J45.909 Unspecified asthma, uncomplicated; E11.9 Type 2 diabetes mellitus without complications; Z79.84 Long term (current) use of oral hypoglycemic drugs; Z79.899 Other long term (current) drug therapy; Z87.891 Personal history of nicotine dependence; Z88.1 Allergy status to other antibiotic agents; Z88.5 Allergy status to narcotic agent; Z91.041 Radiographic dye allergy status
CPT/HCPCS: 90100; 95059